=== PATIENT | female | born 1970 | race Caucasian/White ===

== ENCOUNTER 2022-09-02 23:33 | Emergency (ER) | payer SELFPAY ==
[~2022-09-02 23:33] MED LIST: Iopamidol 300 61% 100 ML VIAL FS ONE
[2022-09-02] MEDS ORDERED: Morphine 4 MG/ML VIAL ONE (23:51)
[2022-09-02] MEDS ORDERED: Ondansetron PF 4 MG/2 ML Vial ONE (23:51)
[2022-09-02] MEDS ORDERED: Ketorolac Tromethamine 30 MG/ML VIAL ONE (23:51)
[2022-09-02 23:59] LABS: #Basophils 0.1 10x3/uL (0.0-0.2); #Eosinphils 0.3 10x3/uL (0.0-0.5); #Monocytes 0.8 10x3/uL (0.0-1.1); #Neutrophils 4.9 10x3/uL (1.5-8.4); %Basophils 0.7 % (0.0-2.0); %Eosinophils 3.7 % (0.0-6.0); %Lymphocytes 23.7 % (18.0-47.0); %Monocytes 9.7 % (0.0-10.0); %Neutrophils 61.5 % (40.0-75.0); Hemoglobin 11.9 g/dL (12.0-15.5); Mean Corpuscular HGB CONC 33.5 g/dL (32.0-36.0); Mean Corpuscular Hemoglobin 29.5 pg (27.0-33.0); Mean Corpuscular Volume 88.1 fl (81.6-98.3); Mean Platelet Volume 9.5 fl (7.4-10.4); Platelet Count 324 10x3/uL (150-450); RBC Distribution Width 13.6 % (11.5-14.5); Red Blood Cell (RBC) Count 4.03 10x6/uL (3.90-5.03)
[2022-09-03 00:18] LABS: ALT (SGPT) 21 U/L (8-55); AST (SGOT) 27 U/L (5-34); Albumin 4.5 g/dL (3.5-5.0); Alkaline Phosphatase 98 U/L (40-110); Anion Gap 14 mmol/L (10-20); BUN (Urea Nitrogen) 21 mg/dL (9.8-20.1); Bilirubin, Total 0.7 mg/dL (0.2-1.2); Calc. Creatinine Clearance 0 mL/min (70-130); Calcium 9.2 mg/dL (7.8-10.44); Carbon Dioxide 22 mmol/L (22-29); Chloride 109 mmol/L (98-107); Estimated GFR 84; Globulin 2.2 g/dL (2.4-3.5); Glucose 95 mg/dL (70-105); Potassium 3.6 mmol/L (3.5-5.1); Protein, Total 6.7 g/dL (6.0-8.3); Sodium 141 mmol/L (136-145)
== END 2022-09-03 02:22 | disposition home or self-care (01) ==
LOC: CSHERS 23:33
DX: S20.214A Contusion of middle front wall of thorax, initial encounter (principal); M54.30 Sciatica, unspecified side; V49.10XA Passenger injured in collision with unspecified motor vehicles in nontraffic accident, initial encounter; Y92.410 Unspecified street and highway as the place of occurrence of the external cause
CPT/HCPCS: 71045; 71260; 72125; 74177; 80053; 84484; 85025; 96374; 96375; J1885; J2270; J2405; Q9967